=== PATIENT | male | born 1940 | race African-American/Black ===

== ENCOUNTER 2025-03-16 11:16 | Inpatient (IN) | payer MEDICARE, OTHER ==
[~2025-03-16] VITALS: Ht 185.4 cm; Wt 84.2 kg
[2025-03-16] MEDS ORDERED: CLON0.2T PO (11:42)
[2025-03-16] MEDS ORDERED: TAMS0.4C94 PO (11:42)
[2025-03-16] MEDS ORDERED: LORazepam 2 MG/ML VIAL IM ONE (11:45)
[2025-03-16] MEDS ORDERED: DiphenhydrAMINE HCL 50 MG/ML VIAL IM ONE (11:45)
[2025-03-16] MEDS ORDERED: HALOPERIDOL LACTATE 5 MG/ML VIAL IM ONE (11:45)
[2025-03-16 11:48] LABS: COVID AG,FIA SOURCE NASAL SWAB
[2025-03-16 11:51] LABS: BASOPHILS % (AUTO) 0.8 % (0.0-2.0); EOSINOPHILS % (AUTO) 1.8 % (1.0-6.0); HEMATOCRIT 27.4 % (41-53); HEMOGLOBIN 8.9 g/dL (13.5-17.5); LYMPHOCYTES # (AUTO) 1.3 K/uL (1.0-4.8); LYMPHOCYTES % (AUTO) 24.2 % (22.0-44.0); MEAN CORPUSCULAR HGB CONC 32.5 G/dL (31.0-37.0); MEAN CORPUSCULAR VOLUME 92 fL (80-100); MONOCYTES # (AUTO) 0.4 K/uL (0.1-1.0); MONOCYTES % (AUTO) 7.7 % (2.0-9.0); NEUTROPHILS # (AUTO) 3.6 K/uL (1.8-7.7); NEUTROPHILS % (AUTO) 65.5 % (40.0-70.0); PLATELET COUNT (AUTO) 271 K/uL (150-450); RED BLOOD CELL COUNT(AUTO) 2.96 MIL/uL (4.50-5.90); RED CELL DISTRIBUTION WIDTH 14.4 % (11.5-14.5); WHITE BLOOD COUNT (AUTO) 5.5 K/uL (4.5-11.0)
[2025-03-16 11:58] LABS: CALCIUM, TOTAL 8.9 mg/dL (8.8-10.5); CREATININE 3.31 mg/dL (0.60-1.30); POTASSIUM 3.8 mmol/L (3.5-5.1)
[2025-03-16 12:07] LABS: SARS-COV2 (COVID) ANTIGEN,FIA Negative (Negative)
[2025-03-16] MEDS: SODIUM CHLORIDE 0.9% 1,000 ML IV ONE (12:27)
[2025-03-16 13:27] LABS: APPEARANCE,URINE CLEAR (CLEAR); BILIRUBIN,URINE NEGATIVE (NEGATIVE); COLOR,URINE LIGHT YELLOW (YELLOW); GLUCOSE, URINE (UA) NEGATIVE (NEGATIVE); KETONES,URINE NEGATIVE (NEGATIVE); LEUKOCYTE ESTERASE ,URINE NEGATIVE (NEGATIVE); NITRATE,URINE NEGATIVE (NEGATIVE); OCCULT BLOOD,URINE NEGATIVE (NEGATIVE); PH,URINE 5.5 (5.0-8.0); PROTEIN,URINE 300-600,SEE CONFIRM mg/dL (NEGATIVE); SPECIFIC GRAVITIY, URINE 1.014 (1.003-1.030); UROBILINOGEN,URINE <=1.0 mg/dL (<=1.0)
[2025-03-16 13:33] LABS: ALCOHOL, URINE DRUG SCREEN NEGATIVE (NEGATIVE); AMPHET/METH SCREEN,URINE NEGATIVE (NEGATIVE); BARBITURATE SCREEN, URINE NEGATIVE (NEGATIVE); BENZODIAZEPINES SCREEN,URINE NEGATIVE (NEGATIVE); CANNABINOID SCREEN,URINE POSITIVE (NEGATIVE); COCAINE SCREEN,URINE NEGATIVE (NEGATIVE); METHADONE SCREEN, URINE NEGATIVE (NEGATIVE); OPIATE SCREEN,URINE NEGATIVE (NEGATIVE); PHENCYCLIDINE SCREEN,URINE NEGATIVE (NEGATIVE)
[2025-03-16 13:34] LABS: PH,URINE DRUG SCREEN 5.5 (5.0-8.0)
[2025-03-16 13:36] LABS: SULFOSALICYLIC ACID,URINE 3+ (Negative)
[2025-03-16 13:37] LABS: RBC,URINE None Seen /HPF (0-2); WBC,URINE 0-2 /HPF (0-5)
[2025-03-16 13:38] LABS: BACTERIA,URINE None Seen /HPF (None Seen); SQUAMOUS EPITHELIAL CELL,UR Few /LPF (None Seen)
[2025-03-16] MEDS ORDERED: MORPHINE SULFATE 2 MG/ML SYRINGE IVP PRN (14:45)
[2025-03-16] MEDS ORDERED: ZOLPIDEM TARTRATE 5 MG TABLET PO PRN (14:45)
[2025-03-16] MEDS ORDERED: MAGNESIUM HYDROXIDE SUSPENSION 30 ML UDCUP PO PRN (14:45)
[2025-03-16] MEDS ORDERED: ONDANSETRON HCL 4 MG/2 ML VIAL IVP PRN (14:45)
[2025-03-16] MEDS ORDERED: ALBUTEROL SULFATE 2.5 MG/0.5 ML NEB SOLUTION NEB PRN (14:45)
[2025-03-16] MEDS ORDERED: BISACODYL 10 MG RECTAL RECTAL SUPPOSITORY PR PRN (14:45)
[2025-03-16] MEDS ORDERED: ACETAMINOPHEN 325 MG TABLET PO PRN (14:45)
[2025-03-16] MEDS ORDERED: IPRATROPIUM BROMIDE 0.5 MG/2.5 ML NEB SOLUTION NEB PRN (14:45)
[2025-03-16 15:11] LABS: APPEARANCE,URINE CLEAR (CLEAR); BILIRUBIN,URINE NEGATIVE (NEGATIVE); COLOR,URINE LIGHT YELLOW (YELLOW); GLUCOSE, URINE (UA) NEGATIVE (NEGATIVE); KETONES,URINE NEGATIVE (NEGATIVE); LEUKOCYTE ESTERASE ,URINE NEGATIVE (NEGATIVE); NITRATE,URINE NEGATIVE (NEGATIVE); OCCULT BLOOD,URINE NEGATIVE (NEGATIVE); PH,URINE 5.5 (5.0-8.0); PROTEIN,URINE 300-600,SEE CONFIRM mg/dL (NEGATIVE); SPECIFIC GRAVITIY, URINE 1.014 (1.003-1.030); UROBILINOGEN,URINE <=1.0 mg/dL (<=1.0)
[2025-03-16 15:14] LABS: PROTEIN,URINE RANDOM 217 mg/dL (0-11.9); SODIUM,URINE RANDOM 29 mmol/l (20-110); UREA NITROGEN,URINE RANDOM 527 mg/dL (350-1000)
[2025-03-16] MEDS: SODIUM CHLORIDE 0.45% 1,000 ML IV SCH (15:43)
[2025-03-16] MEDS: HEPARIN SODIUM,PORCINE 5,000 UNITS/ML VIAL SQ SCH (15:44)
[2025-03-16 15:58] LABS: BACTERIA,URINE Rare /HPF (None Seen); RBC,URINE None Seen /HPF (0-2); WBC,URINE 0-2 /HPF (0-5)
[2025-03-16] MEDS: CloNIDine HCL 0.1 MG TABLET PO ONE (17:29)
[2025-03-16] MEDS ORDERED: CloNIDine HCL 0.2 MG TABLET PO SCH (21:00)
[2025-03-16 22:45] VITALS: BP 169/61; PULSE 44; RESP 18; TEMP 97.5; O2SAT 97
[2025-03-17] VITALS (7 sets, daily range): BP systolic 153–198; BP diastolic 32–63; PULSE 50–61; RESP 18; TEMP 97.3–98.6; O2SAT 97–99
[2025-03-17] MEDS: HydrALAZINE HCL 20 MG/ML VIAL IVP PRN (05:38)
[2025-03-17 07:01] LABS: HEMATOCRIT 26.4 % (41-53); HEMOGLOBIN 8.8 g/dL (13.5-17.5)
[2025-03-17 07:29] LABS: % IRON SATURATION 21.2 % (30-44)
[2025-03-17] MEDS: NIFEdipine 30 MG ER TABLET PO SCH (08:29)
[2025-03-17] MEDS: EPOETIN ALFA 10,000 UNITS/ML VIAL SQ SCH (08:30)
[2025-03-17] MEDS: TAMSULOSIN HCL 0.4 MG CAPSULE PO SCH (09:00)
[2025-03-17] MEDS: PANTOPRAZOLE SODIUM 40 MG DR TABLET PO SCH (09:00)
[2025-03-17 09:19] LABS: MAGNESIUM 1.9 mg/dL (1.80-2.40); PHOSPHORUS 3.1 mg/dL (2.5-4.9)
[2025-03-17 10:03] LABS: CALCIUM, TOTAL 9.1 mg/dL (8.8-10.5); CREATININE 2.66 mg/dL (0.60-1.30); POTASSIUM 3.8 mmol/L (3.5-5.1)
[2025-03-17] MEDS: CloNIDine HCL 0.1 MG TABLET PO ONE (12:43)
[2025-03-17] MEDS: CloNIDine HCL 0.2 MG TABLET PO SCH (21:04)
[2025-03-18] VITALS (7 sets, daily range): BP systolic 160–212; BP diastolic 43–68; PULSE 51–59; RESP 18–20; TEMP 97.5–98.8; O2SAT 98–100
[2025-03-18] MEDS: LURASIDONE HCL 20 MG TABLET PO SCH (08:11)
[2025-03-18] MEDS ORDERED: ATOR20TA65 PO (11:28)
[2025-03-18] MEDS ORDERED: DOXA4TAB3 PO (11:28)
[2025-03-18] MEDS ORDERED: PANT40TA54 PO (11:28)
[2025-03-18] MEDS ORDERED: NIFE90TA72 PO (11:28)
[2025-03-18] MEDS: NIFEdipine 30 MG ER TABLET PO ONE (12:16)
[2025-03-18 14:20] LABS: CALCIUM, TOTAL 8.8 mg/dL (8.8-10.5); CREATININE 2.59 mg/dL (0.60-1.30); POTASSIUM 4.3 mmol/L (3.5-5.1)
[2025-03-18] MEDS ORDERED: SODIUM CHLORIDE 0.9% 1,000 ML ONE (14:47)
[2025-03-18 15:43] LABS: MAGNESIUM 1.9 mg/dL (1.80-2.40)
[2025-03-18] MEDS: CloNIDine HCL 0.1 MG TABLET PO ONE (18:33)
[2025-03-18] MEDS: MELATONIN 5 MG TABLET PO SCH (20:19)
[2025-03-19 00:58] VITALS: BP 158/63; PULSE 54; RESP 20; TEMP 98.4; O2SAT 99
[2025-03-19 04:15] VITALS: BP 171/78; PULSE 52; RESP 20; TEMP 98.1; O2SAT 100
[2025-03-19 07:27] VITALS: BP 184/56; PULSE 55; RESP 18; TEMP 97.9; O2SAT 95
[2025-03-19 08:39] LABS: CALCIUM, TOTAL 8.7 mg/dL (8.8-10.5); CREATININE 2.97 mg/dL (0.60-1.30); POTASSIUM 3.8 mmol/L (3.5-5.1)
[2025-03-19 08:43] LABS: PHOSPHORUS 3.5 mg/dL (2.5-4.9)
[2025-03-19] MEDS: NIFEdipine 60 MG ER TABLET PO SCH (09:15)
[2025-03-19 16:37] VITALS: BP 184/73; PULSE 69; RESP 18; TEMP 97.9; O2SAT 100
[2025-03-19] MEDS: HydrALAZINE HCL 25 MG TABLET PO SCH (16:43)
[2025-03-19 21:45] VITALS: BP 178/58; PULSE 59; RESP 20; TEMP 97.5; O2SAT 100
[2025-03-19 22:30] VITALS: BP 158/85; PULSE 60; RESP 18; O2SAT 97
[2025-03-20] VITALS (7 sets, daily range): BP systolic 158–194; BP diastolic 48–86; PULSE 53–66; RESP 18–20; TEMP 97.7–98.1; O2SAT 98–100
[2025-03-20] MEDS: NIFEdipine 30 MG ER TABLET PO ONE (11:33)
[2025-03-20 12:12] LABS: BASOPHILS % (AUTO) 0.4 % (0.0-2.0); EOSINOPHILS % (AUTO) 1.7 % (1.0-6.0); HEMATOCRIT 27.1 % (41-53); HEMOGLOBIN 9.1 g/dL (13.5-17.5); LYMPHOCYTES # (AUTO) 1.9 K/uL (1.0-4.8); LYMPHOCYTES % (AUTO) 30.8 % (22.0-44.0); MEAN CORPUSCULAR HEMOGLOBIN 30.7 pg (26.0-34.0); MEAN CORPUSCULAR HGB CONC 33.7 G/dL (31.0-37.0); MEAN CORPUSCULAR VOLUME 91 fL (80-100); MONOCYTES # (AUTO) 0.7 K/uL (0.1-1.0); MONOCYTES % (AUTO) 10.9 % (2.0-9.0); NEUTROPHILS # (AUTO) 3.4 K/uL (1.8-7.7); NEUTROPHILS % (AUTO) 56.2 % (40.0-70.0); PLATELET COUNT (AUTO) 242 K/uL (150-450); RED BLOOD CELL COUNT(AUTO) 2.98 MIL/uL (4.50-5.90); RED CELL DISTRIBUTION WIDTH 14.1 % (11.5-14.5); WHITE BLOOD COUNT (AUTO) 6.1 K/uL (4.5-11.0)
[2025-03-20 12:22] LABS: CALCIUM, TOTAL 8.9 mg/dL (8.8-10.5); CREATININE 2.78 mg/dL (0.60-1.30); POTASSIUM 3.2 mmol/L (3.5-5.1)
[2025-03-20 12:27] LABS: ALBUMIN 2.8 g/dL (3.4-5.0); BILIRUBIN,TOTAL 0.2 mg/dL (0.1-1.0); TOTAL PROTEIN, SERUM 6.3 g/dL (6.4-8.2)
[2025-03-20 12:44] LABS: MAGNESIUM 1.8 mg/dL (1.80-2.40); PHOSPHORUS 2.8 mg/dL (2.5-4.9)
[2025-03-20] MEDS: POTASSIUM CHLORIDE 10 MEQ ER TABLET PO ONE (17:24)
[2025-03-20] MEDS: HydrALAZINE HCL 50 MG TABLET PO SCH (17:26)
[2025-03-21] MEDS: GuaiFENesin [SUGAR-FREE] 200 MG/10 ML SOLUTION UDCUP PO PRN (02:41)
[2025-03-21 05:18] VITALS: BP 173/51; PULSE 54; RESP 18; TEMP 98.1; O2SAT 97
[2025-03-21 07:35] VITALS: BP 162/61; PULSE 57; RESP 18; TEMP 97.9; O2SAT 100
[2025-03-21] MEDS: NIFEdipine 90 MG ER TABLET PO SCH ×2 (08:28→22:34)
[2025-03-21 09:20] LABS: CALCIUM, TOTAL 8.8 mg/dL (8.8-10.5); CREATININE 2.68 mg/dL (0.60-1.30); POTASSIUM 3.7 mmol/L (3.5-5.1)
[2025-03-21 09:21] LABS: MAGNESIUM 1.9 mg/dL (1.80-2.40); PHOSPHORUS 3.1 mg/dL (2.5-4.9)
[2025-03-21 10:30] VITALS: BP 156/48
[2025-03-21] MEDS ORDERED: CLON0.3T PO (11:50)
[2025-03-21] MEDS ORDERED: HYDR50TA37 PO (11:50)
[2025-03-21] MEDS ORDERED: LURA20TA PO (11:50)
[2025-03-21] MEDS ORDERED: MELA5TAB40 PO (11:50)
[2025-03-21] MEDS ORDERED: TAMS0.4C94 PO (11:50)
[2025-03-21] MEDS: TAMSULOSIN HCL 0.4 MG CAPSULE PO ONE (12:06)
[2025-03-21 12:16] LABS: BASOPHILS % (AUTO) 0.7 % (0.0-2.0); EOSINOPHILS % (AUTO) 2.8 % (1.0-6.0); HEMATOCRIT 25.3 % (41-53); HEMOGLOBIN 8.3 g/dL (13.5-17.5); LYMPHOCYTES # (AUTO) 1.9 K/uL (1.0-4.8); LYMPHOCYTES % (AUTO) 34.4 % (22.0-44.0); MEAN CORPUSCULAR HEMOGLOBIN 30.1 pg (26.0-34.0); MEAN CORPUSCULAR HGB CONC 32.8 G/dL (31.0-37.0); MEAN CORPUSCULAR VOLUME 92 fL (80-100); MONOCYTES # (AUTO) 0.7 K/uL (0.1-1.0); MONOCYTES % (AUTO) 12.5 % (2.0-9.0); NEUTROPHILS # (AUTO) 2.7 K/uL (1.8-7.7); NEUTROPHILS % (AUTO) 49.6 % (40.0-70.0); PLATELET COUNT (AUTO) 231 K/uL (150-450); RED BLOOD CELL COUNT(AUTO) 2.75 MIL/uL (4.50-5.90); RED CELL DISTRIBUTION WIDTH 13.9 % (11.5-14.5); WHITE BLOOD COUNT (AUTO) 5.4 K/uL (4.5-11.0)
[2025-03-21 16:08] VITALS: BP 170/60; PULSE 57; RESP 18; TEMP 98; O2SAT 100
[2025-03-21 17:25] VITALS: BP 137/56; PULSE 50; RESP 18; TEMP 97.7; O2SAT 100
[2025-03-21 19:56] VITALS: BP 150/52; PULSE 56; RESP 18; TEMP 97.9; O2SAT 95
[2025-03-21] MEDS: TAMSULOSIN HCL 0.4 MG CAPSULE PO SCH (22:34)
[2025-03-22] VITALS (8 sets, daily range): BP systolic 140–158; BP diastolic 51–72; PULSE 51–67; RESP 18–20; TEMP 97.3–98.2; O2SAT 94–100
[2025-03-22] MEDS: TERAZOSIN HCL 2 MG CAPSULE PO SCH (01:01)
[2025-03-22] MEDS: HydrALAZINE HCL 25 MG TABLET PO SCH (01:01)
[2025-03-22] MEDS: ATORVASTATIN CALCIUM 20 MG TABLET PO SCH (08:28)
[2025-03-22] MEDS: LOSARTAN POTASSIUM 50 MG TABLET PO SCH (14:41)
[2025-03-23] VITALS (7 sets, daily range): BP systolic 142–181; BP diastolic 41–105; PULSE 59–78; RESP 18–20; TEMP 98.1–99.3; O2SAT 96–100
[2025-03-23] MEDS: NIFEdipine 30 MG ER TABLET PO SCH (07:52)
[2025-03-23] MEDS: AmLODIPine BESYLATE 5 MG TABLET PO SCH (12:55)
[2025-03-23] MEDS: LURASIDONE HCL 20 MG TABLET PO PRN (18:19)
[2025-03-23] MEDS: LABETALOL HCL 5 MG/ML 20 ML VIAL IVP PRN (19:20)
[2025-03-23] MEDS: LOSARTAN POTASSIUM 50 MG TABLET PO SCH (22:02)
[2025-03-24 04:50] VITALS: BP 131/59; PULSE 64; PULSE 66; RESP 18; TEMP 98.1; O2SAT 99
[2025-03-24 07:34] LABS: CALCIUM, TOTAL 8.9 mg/dL (8.8-10.5); CREATININE 3.21 mg/dL (0.60-1.30); POTASSIUM 3.4 mmol/L (3.5-5.1)
[2025-03-24] MEDS: EPOETIN ALFA 10,000 UNITS/ML 2 ML VIAL SQ SCH (08:12)
[2025-03-24 08:14] VITALS: BP 204/75; PULSE 72; RESP 18; TEMP 98.4; O2SAT 96
[2025-03-24 08:52] VITALS: BP 180/54; PULSE 74; RESP 18; TEMP 98.1; O2SAT 98
[2025-03-24] MEDS: AmLODIPine BESYLATE 10 MG TABLET PO SCH (09:00)
[2025-03-24] MEDS: LOSARTAN POTASSIUM 50 MG TABLET PO SCH (09:00)
[2025-03-24] MEDS: CloNIDine HCL 0.1 MG TABLET PO SCH (10:56)
[2025-03-24] MEDS: AmLODIPine BESYLATE 5 MG TABLET PO ONE (11:20)
[2025-03-24 15:35] VITALS: BP 165/42; PULSE 64; RESP 18; TEMP 98.2; O2SAT 98
[2025-03-24 19:42] VITALS: BP 173/56; PULSE 71; RESP 18; TEMP 98.2; O2SAT 98
[2025-03-25 01:07] LABS: PARATHYROID HORMONE INTACT 119 pg/mL (15-65)
[2025-03-25 04:44] VITALS: BP 169/55; PULSE 64; RESP 18; TEMP 98.2; O2SAT 98
[2025-03-25 07:21] VITALS: BP 160/56; PULSE 68; RESP 18; TEMP 98.1; O2SAT 98
[2025-03-25] MEDS: CloNIDine HCL 0.1 MG TABLET PO SCH (08:10)
[2025-03-25 11:30] VITALS: BP 158/56
[2025-03-25 12:12] VITALS: BP 152/60
[2025-03-25] MEDS ORDERED: LOSA-382 PO (12:17)
[2025-03-25] MEDS ORDERED: AMLO-258 PO (12:17)
[2025-03-25 15:15] VITALS: BP 162/54; PULSE 59; RESP 20; TEMP 98.8; O2SAT 98
[2025-03-25 17:36] LABS: GLUCOMETER DEV NAME(LOC) 6S.2; GLUCOSE,POINT OF CARE 193 MG/DL (70-110)
[2025-03-25 19:27] VITALS: BP 162/52; PULSE 61; RESP 20; TEMP 97.7; O2SAT 98
[2025-03-25] MEDS: HYDROCODONE/ACETAMINOPHEN 5-325 MG TABLET PO PRN (20:04)
[2025-03-26 04:40] VITALS: BP 158/58; PULSE 61; RESP 18; TEMP 98.1; O2SAT 96
[2025-03-26 07:05] LABS: BASOPHILS % (AUTO) 0.9 % (0.0-2.0); EOSINOPHILS % (AUTO) 2.9 % (1.0-6.0); HEMATOCRIT 23.8 % (41-53); HEMOGLOBIN 7.7 g/dL (13.5-17.5); LYMPHOCYTES # (AUTO) 1.8 K/uL (1.0-4.8); LYMPHOCYTES % (AUTO) 29.1 % (22.0-44.0); MEAN CORPUSCULAR HEMOGLOBIN 29.9 pg (26.0-34.0); MEAN CORPUSCULAR HGB CONC 32.5 G/dL (31.0-37.0); MEAN CORPUSCULAR VOLUME 92 fL (80-100); MONOCYTES # (AUTO) 0.8 K/uL (0.1-1.0); MONOCYTES % (AUTO) 13.7 % (2.0-9.0); NEUTROPHILS # (AUTO) 3.2 K/uL (1.8-7.7); NEUTROPHILS % (AUTO) 53.4 % (40.0-70.0); PLATELET COUNT (AUTO) 260 K/uL (150-450); RED BLOOD CELL COUNT(AUTO) 2.59 MIL/uL (4.50-5.90); RED CELL DISTRIBUTION WIDTH 14.5 % (11.5-14.5); WHITE BLOOD COUNT (AUTO) 6.1 K/uL (4.5-11.0)
[2025-03-26 07:30] VITALS: BP 167/48; PULSE 53; RESP 18; TEMP 97.7; O2SAT 98
[2025-03-26 07:32] LABS: CREATININE 3.48 mg/dL (0.60-1.30); POTASSIUM 4.2 mmol/L (3.5-5.1)
[2025-03-26 15:10] VITALS: BP 147/55; PULSE 66; RESP 19; TEMP 97.9; O2SAT 98
[2025-03-26 19:30] VITALS: BP 158/56; PULSE 52; RESP 18; TEMP 98.1; O2SAT 99
[2025-03-26 21:21] LABS: CREATININE,URINE RANDOM 119.3 mg/dL (30.0-125.0)
[2025-03-27 04:00] VITALS: BP 157/56; PULSE 54; RESP 18; TEMP 97.9; O2SAT 100
[2025-03-27 08:26] VITALS: BP 174/44; PULSE 68; RESP 18; TEMP 97.7; O2SAT 100
[2025-03-27] MEDS: EPOETIN ALFA 10,000 UNITS/ML VIAL SQ SCH (08:28)
[2025-03-27 16:29] VITALS: BP 178/56; PULSE 55; RESP 18; TEMP 97.8; O2SAT 98
[2025-03-27 20:37] VITALS: BP 172/64; PULSE 64; RESP 20; TEMP 98.2; O2SAT 97
[2025-03-27 20:54] VITALS: BP 157/51; PULSE 57; RESP 18; TEMP 98.2; O2SAT 97
[2025-03-28] VITALS (7 sets, daily range): BP systolic 148–184; BP diastolic 44–74; PULSE 55–79; RESP 18–19; TEMP 97.7–98.1; O2SAT 98–99
[2025-03-28] MEDS: HydrALAZINE HCL 50 MG TABLET PO SCH (00:35)
[2025-03-28 08:26] LABS: CALCIUM, TOTAL 9.1 mg/dL (8.8-10.5); CREATININE 3.23 mg/dL (0.60-1.30); POTASSIUM 4.1 mmol/L (3.5-5.1)
[2025-03-28 09:09] LABS: BASOPHILS % (AUTO) 0.7 % (0.0-2.0); EOSINOPHILS % (AUTO) 3.1 % (1.0-6.0); HEMATOCRIT 27.4 % (41-53); HEMOGLOBIN 8.9 g/dL (13.5-17.5); LYMPHOCYTES # (AUTO) 1.9 K/uL (1.0-4.8); LYMPHOCYTES % (AUTO) 30.9 % (22.0-44.0); MEAN CORPUSCULAR HEMOGLOBIN 29.7 pg (26.0-34.0); MEAN CORPUSCULAR HGB CONC 32.5 G/dL (31.0-37.0); MEAN CORPUSCULAR VOLUME 91 fL (80-100); MONOCYTES # (AUTO) 0.8 K/uL (0.1-1.0); MONOCYTES % (AUTO) 12.4 % (2.0-9.0); NEUTROPHILS # (AUTO) 3.3 K/uL (1.8-7.7); NEUTROPHILS % (AUTO) 52.9 % (40.0-70.0); PLATELET COUNT (AUTO) 272 K/uL (150-450); WHITE BLOOD COUNT (AUTO) 6.2 K/uL (4.5-11.0)
[2025-03-28 11:07] LABS: CREATININE, URINE (mALB) 111.6 mg/dL (Not Estab.)
[2025-03-28] MEDS: FUROSEMIDE 20 MG TABLET PO SCH (15:23)
[2025-03-28] MEDS: LURASIDONE HCL 40 MG TABLET PO SCH (15:24)
[2025-03-29 04:14] VITALS: BP 172/52; PULSE 57; RESP 19; TEMP 98.2; O2SAT 96
[2025-03-29 08:10] VITALS: BP 171/60; PULSE 60; RESP 19; TEMP 97.7; O2SAT 96
[2025-03-29 09:49] LABS: CALCIUM, TOTAL 8.9 mg/dL (8.8-10.5); CREATININE 3.58 mg/dL (0.60-1.30); POTASSIUM 4.1 mmol/L (3.5-5.1)
[2025-03-29 14:21] VITALS: BP 149/52; PULSE 60; RESP 18; TEMP 98.1; O2SAT 98
[2025-03-29 20:01] VITALS: BP 147/50; PULSE 57; RESP 16; TEMP 97.9; O2SAT 97
[2025-03-29] MEDS: AmLODIPine BESYLATE 10 MG TABLET PO SCH (21:01)
[2025-03-29 23:25] VITALS: BP 171/67; PULSE 53; RESP 18; O2SAT 97
[2025-03-30 05:00] VITALS: BP 138/102; PULSE 66; RESP 17; O2SAT 97
[2025-03-30 07:04] LABS: CALCIUM, TOTAL 8.7 mg/dL (8.8-10.5); CREATININE 3.58 mg/dL (0.60-1.30); POTASSIUM 3.6 mmol/L (3.5-5.1)
[2025-03-30 07:18] VITALS: BP 164/63; PULSE 57; RESP 18; TEMP 98.3; O2SAT 100
[2025-03-30 16:14] VITALS: BP_SYST 156; BP_SYST 161; BP_DIAS 53; BP_DIAS 65; PULSE 60; PULSE 64; RESP 18; TEMP 97.7; O2SAT 99
[2025-03-30 19:43] VITALS: BP 148/56; PULSE 57; RESP 18; TEMP 97.9; O2SAT 99
[2025-03-30 23:52] VITALS: BP 163/65; PULSE 53; RESP 18; TEMP 98.2; O2SAT 97
[2025-03-31 04:15] VITALS: BP 168/64; PULSE 52; RESP 18; TEMP 98.1; O2SAT 97
[2025-03-31 08:41] VITALS: BP 161/57; PULSE 56; RESP 18; TEMP 97.9; O2SAT 100
[2025-03-31 11:26] VITALS: BP 164/55; PULSE 60
[2025-03-31 16:07] VITALS: BP 143/55; PULSE 61; RESP 18; TEMP 97.7; O2SAT 98
[2025-03-31 19:20] VITALS: BP 155/56; PULSE 59; RESP 18; TEMP 97.9; O2SAT 100
[2025-04-01 00:22] VITALS: BP 149/44; PULSE 58; RESP 18; TEMP 97.8; O2SAT 99
[2025-04-01 05:41] VITALS: BP 163/58; PULSE 52; RESP 18; TEMP 97.7; O2SAT 98
[2025-04-01 08:42] VITALS: BP 186/63; PULSE 60; RESP 18; TEMP 98.1; O2SAT 96
[2025-04-01] MEDS: AmLODIPine BESYLATE 10 MG TABLET PO SCH (08:45)
[2025-04-01] MEDS: LURASIDONE HCL 60 MG TABLET PO SCH (08:47)
[2025-04-01 16:14] VITALS: BP 161/57; PULSE 66; RESP 18; TEMP 97.8; O2SAT 98
[2025-04-01 19:28] VITALS: BP 159/56; PULSE 58; RESP 18; TEMP 97.7; O2SAT 97
[2025-04-01] MEDS: TERAZOSIN HCL 2 MG CAPSULE PO SCH (20:15)
[2025-04-01 23:40] VITALS: BP 157/58; PULSE 52; RESP 18; TEMP 97.7; O2SAT 97
[2025-04-02 05:01] VITALS: BP 151/51; PULSE 55; RESP 18; TEMP 97.7; O2SAT 100
[2025-04-02 08:12] VITALS: BP 154/60; PULSE 59; RESP 18; TEMP 97.9; O2SAT 100
[2025-04-02] MEDS ORDERED: CLON0.1T2 PO (11:28)
[2025-04-02] MEDS ORDERED: FURO20TA5 PO (11:31)
[2025-04-02] MEDS ORDERED: HEPA500018 SQ (11:32)
[2025-04-02] MEDS ORDERED: HYDR50TA36 PO (11:34)
[2025-04-02] MEDS ORDERED: LURA60TA PO (11:35)
[2025-04-02] MEDS ORDERED: TERA2CAP10 PO (11:38)
[2025-04-02] MEDS ORDERED: ACET-2247 PO (12:00)
[2025-04-02] MEDS ORDERED: ALBU2.5V39 NEB (12:07)
[2025-04-02] MEDS ORDERED: GUAI100L96 PO (12:08)
[2025-04-02] MEDS ORDERED: BISA-151 PO (12:10)
[2025-04-02] MEDS ORDERED: HYDR-4062 PO (12:12)
[2025-04-02] MEDS ORDERED: IPRA0.2S49 NEB (12:14)
== END 2025-04-02 14:05 | DRG 683 ==
LOC: EMS 11:16 → EDH 14:43 → 6S 21:33 → 6N 03-17 20:00 → 6S 03-21 18:53
PROVIDERS: ADMIT Hospitalist; ATTEND Hospitalist
DX: N17.9 Acute kidney failure, unspecified (principal); F03.911 Unspecified dementia, unspecified severity, with agitation; I12.9 Hypertensive chronic kidney disease with stage 1 through stage 4 chronic kidney disease, or unspecified chronic kidney disease; N40.0 Benign prostatic hyperplasia without lower urinary tract symptoms; I16.0 Hypertensive urgency; Z20.822 Contact with and (suspected) exposure to COVID-19; F20.9 Schizophrenia, unspecified; D63.1 Anemia in chronic kidney disease; E61.1 Iron deficiency; E87.6 Hypokalemia; N25.81 Secondary hyperparathyroidism of renal origin; D17.0 Benign lipomatous neoplasm of skin and subcutaneous tissue of head, face and neck; K21.9 Gastro-esophageal reflux disease without esophagitis; F12.90 Cannabis use, unspecified, uncomplicated; N18.4 Chronic kidney disease, stage 4 (severe); G89.29 Other chronic pain; M54.9 Dorsalgia, unspecified; E78.00 Pure hypercholesterolemia, unspecified; Z79.899 Other long term (current) drug therapy
CPT/HCPCS: 71045; 71110; 76770; 80048; 80053; 80307; 81001; 81002; 81003; 82043; 82550; 82570; 82962; 83540; 83550; 83735; 83970; 84100; 84156; 84300; 84540; 85014; 85018; 85025; 96361; 96365; 97116; 97161; 97164; 97165; 97168; 99285; G0480; J0360; J0885; J1644; J3490; J7030; 36415-L1; 36415-TC